=== PATIENT | male | born 2000 | race Caucasian/White ===

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

== ENCOUNTER 2021-01-05 22:16 | Emergency (ER) | payer OTHER ==
--- NOTE | 2021-01-05 22:52 | XR ---
EXAMINATION TYPE: XR chest 2V DATE OF EXAM: 01/05/2021 COMPARISON: NONE HISTORY: Short of breath TECHNIQUE: 2 views FINDINGS: Heart and mediastinum are normal. Lungs are clear. Diaphragm is normal. Bony thorax is inta ct. The pulmonary vascularity is normal. IMPRESSION: Normal chest.
[2021-01-05 22:58] LABS: Basophils # (A) 0.1 k/uL (0-0.2); Basophils % (A) 0 %; Eosinophils # (A) 0.1 k/uL (0-0.7); Eosinophils % (A) 1 %; HCT 45.4 % (39.0-53.0); HGB 15.9 gm/dL (13.0-17.5); Lymphocytes % (A) 17 %; MCH 29.9 pg (25.0-35.0); MCHC 35.1 g/dL (31.0-37.0); MCV 85.1 fL (80.0-100.0); Mean Platelet Volume 8.7; Monocytes # (A) 0.6 k/uL (0-1.0); Monocytes % (A) 5 %; Neutrophils # (A) 9.1 k/uL (1.3-7.7); Neutrophils % (A) 76 %; Platelet Count 193 k/uL (150-450); RBC 5.33 m/uL (4.30-5.90); RDW 12.1 % (11.5-15.5)
[2021-01-05 23:04] LABS: ALT 21 U/L (4-49); AST 25 U/L (17-59); African American GFR (CKD) >90 (>60 ml/min/1.73 sqM); Albumin 4.9 g/dL (3.5-5.0); Alkaline Phosphatase 84 U/L (38-126); Anion Gap 12 mmol/L; Blood Urea Nitrogen 23 mg/dL (9-20); Calcium 10.4 mg/dL (8.4-10.2); Carbon Dioxide 22 mmol/L (22-30); Chloride 103 mmol/L (98-107); Glucose 107 mg/dL (74-99); Non-African American GFR(CKD) >90 (>60 ml/min/1.73 sqM); Potassium 3.5 mmol/L (3.5-5.1); Sodium 137 mmol/L (137-145); Total Bilirubin 0.5 mg/dL (0.2-1.3); Total Protein 7.7 g/dL (6.3-8.2)
[2021-01-05 23:44] LABS: INR 1.1 (<1.2); Partial Thromboplastin Time 22.1 sec (22.0-30.0); Prothrombin Time 11.5 sec (9.0-12.0)
[2021-01-05] MEDS ORDERED: SODIUM CHLORIDE 0.9% 500 ML 500 ML IV STA (23:47)
--- NOTE | 2021-01-06 00:07 | ED ---
SOB HPI - General Chief Complaint: Shortness of Breath Stated Complaint: SOB,Hands tingling Time Seen by Provider: 01/05/21 23:25 Source: patient Limitations: no limitations - History of Present Illness Initial Comments: This patient is a 20-year-old man who presents to be evaluated for episode of dyspnea and chest tightness that occurred this afternoon while he was working out. The patient states he has previously been able workout without episodes like this however he had recently been vaping. The patient noted that during his workout he felt it was hard to catch his breath, he was having chest tightness, and he felt like it was rattling in his chest. He had run for a mile when symptoms developed. The patient notes that his symptoms have resolved and he is back at his baseline now MD Complaint: shortness of breath, cough -: hour(s) Severity scale (1-10): 0 Quality: dull Consistency: now resolved Improves With: rest Worsens With: exertion Context: occurred during exertion Associated Symptoms: denies other symptoms Treatments Prior to Arrival: none - Related Data Home Oxygen Therapy: No Home Medications Medication Instructions Recorded Confirmed No Known Home Medications 05/12/16 05/12/16 Allergies Allergy/AdvReac Type Severity Reaction Status Date / Time amoxicillin Allergy Rash/Hives Verified 01/05/21 22:32 Review of Systems ROS Statement: Those systems with pertinent positive or pertinent negative responses have been documented in the HPI. ROS Other: All systems not noted in ROS Statement are negative. Constitutional: Denies: fever, chills, weakness Eyes: Denies: vision change Respiratory: Reports: cough, wheezes. Denies: dyspnea Cardiovascular: Reports: chest pain, palpitations, dyspnea on exertion. Denies: orthopnea, edema, syncope Gastrointestinal: Denies: abdominal pain, nausea, vomiting Genitourinary: Denies: dysuria Skin: Denies: rash Neurological: Denies: headache, weakness Past Medical History Past Medical History: Asthma History of Any Multi-Drug Resistant Organisms: None Reported Past Surgical History: No Surgical Hx Reported Past Psychological History: Depression Smoking Status: Current some day smoker Past Alcohol Use History: None Reported Past Drug Use History: None Reported General Exam Limitations: no limitations General appearance: alert, in no apparent distress Head exam: Present: atraumatic, normocephalic Eye exam: Present: normal appearance Respiratory exam: Present: normal lung sounds bilaterally. Absent: respiratory distress, wheezes, rales, rhonchi, stridor Cardiovascular Exam: Present: regular rate, normal rhythm, normal heart sounds. Absent: systolic murmur, diastolic murmur, rubs, gallop GI/Abdominal exam: Present: soft. Absent: distended, tenderness, guarding, rebound, rigid, mass Extremities exam: Present: normal inspection, normal capillary refill. Absent: pedal edema, calf tenderness Back exam: Present: normal inspection. Absent: CVA tenderness (R), CVA tenderness (L) Neurological exam: Present: alert Skin exam: Present: warm, dry, intact, normal color. Absent: rash Course Vital Signs 01/05/21 22:29 Temperature 98.0 F Pulse Rate 69 Respiratory 18 Rate Blood Pressure 164/87 O2 Sat by Pulse 95 Oximetry Medical Decision Making - Lab Data Result diagrams: 01/05/21 22:41 01/05/21 22:41 Lab Results 01/05/21 01/05/21 01/05/21 Range/Units 22:41 22:41 22:41 WBC 12.0 H (4.0-11.0) k/uL RBC 5.33 (4.30-5.90) m/uL Hgb 15.9 (13.0-17.5) gm/dL Hct 45.4 (39.0-53.0) % MCV 85.1 (80.0-100.0) fL MCH 29.9 (25.0-35.0) pg MCHC 35.1 (31.0-37.0) g/dL RDW 12.1 (11.5-15.5) % Plt Count 193 (150-450) k/uL MPV 8.7 Neutrophils % 76 % Lymphocytes % 17 % Monocytes % 5 % Eosinophils % 1 % Basophils % 0 % Neutrophils # 9.1 H (1.3-7.7) k/uL Lymphocytes # 2.0 (1.0-4.8) k/uL Monocytes # 0.6 (0-1.0) k/uL Eosinophils # 0.1 (0-0.7) k/uL Basophils # 0.1 (0-0.2) k/uL PT (9.0-12.0) sec INR (<1.2) APTT (22.0-30.0) sec Sodium 137 (137-145) mmol/L Potassium 3.5 (3.5-5.1) mmol/L Chloride 103 (98-107) mmol/L Carbon Dioxide 22 (22-30) mmol/L Anion Gap 12 mmol/L BUN 23 H (9-20) mg/dL Creatinine 1.04 (0.66-1.25) mg/dL Est GFR (CKD-EPI)AfAm >90 (>60 ml/min/1.73 sqM) Est GFR (CKD-EPI)NonAf >90 (>60 ml/min/1.73 sqM) Glucose 107 H (74-99) mg/dL Calcium 10.4 H (8.4-10.2) mg/dL Total Bilirubin 0.5 (0.2-1.3) mg/dL AST 25 (17-59) U/L ALT 21 (4-49) U/L Alkaline Phosphatase 84 (38-126) U/L Troponin I (0.000-0.034) ng/mL Total Protein 7.7 (6.3-8.2) g/dL Albumin 4.9 (3.5-5.0) g/dL Coronavirus (PCR) Not Detected (Not Detectd) 01/05/21 01/05/21 Range/Units 23:11 23:11 WBC (4.0-11.0) k/uL RBC (4.30-5.90) m/uL Hgb (13.0-17.5) gm/dL Hct (39.0-53.0) % MCV (80.0-100.0) fL MCH (25.0-35.0) pg MCHC (31.0-37.0) g/dL RDW (11.5-15.5) % Plt Count (150-450) k/uL MPV Neutrophils % % Lymphocytes % % Monocytes % % Eosinophils % % Basophils % % Neutrophils # (1.3-7.7) k/uL Lymphocytes # (1.0-4.8) k/uL Monocytes # (0-1.0) k/uL Eosinophils # (0-0.7) k/uL Basophils # (0-0.2) k/uL PT 11.5 (9.0-12.0) sec INR 1.1 (<1.2) APTT 22.1 (22.0-30.0) sec Sodium (137-145) mmol/L Potassium (3.5-5.1) mmol/L Chloride (98-107) mmol/L Carbon Dioxide (22-30) mmol/L Anion Gap mmol/L BUN (9-20) mg/dL Creatinine (0.66-1.25) mg/dL Est GFR (CKD-EPI)AfAm (>60 ml/min/1.73 sqM) Est GFR (CKD-EPI)NonAf (>60 ml/min/1.73 sqM) Glucose (74-99) mg/dL Calcium (8.4-10.2) mg/dL Total Bilirubin (0.2-1.3) mg/dL AST (17-59) U/L ALT (4-49) U/L Alkaline Phosphatase (38-126) U/L Troponin I <0.012 (0.000-0.034) ng/mL Total Protein (6.3-8.2) g/dL Albumin (3.5-5.0) g/dL Coronavirus (PCR) (Not Detectd) Disposition Clinical Impression: Exertional shortness of breath Disposition: HOME SELF-CARE Condition: Good Instructions (If sedation given, give patient instructions): Dyspnea Scale and Exercise (ED) Is patient prescribed a controlled substance at d/c from ED?: No Referrals: Uriel Glynn MD [Primary Care Provider] - 1-2 days
[2021-01-06 00:20] VITALS: BP 130/77; PULSE 76; RESP 14; TEMP 97.9
== END 2021-01-06 00:15 | disposition home or self-care (01) ==
LOC: EC 22:16
DX: R06.02 Shortness of breath (principal); J45.909 Unspecified asthma, uncomplicated; F17.200 Nicotine dependence, unspecified, uncomplicated
CPT/HCPCS: 36415; 71046; 80053; 84484; 85025; 85610; 85730; 87635; 99285

== ENCOUNTER 2021-03-06 23:26 | Emergency (ER) | payer BC, OTHER ==
[2021-03-07 00:38] VITALS: TEMP 97.4
[2021-03-07] MEDS ORDERED: SODIUM CHLORIDE 0.9% 1,000 ML IV STA (00:56)
--- NOTE | 2021-03-07 01:12 | XR ---
EXAMINATION TYPE: XR chest 2V DATE OF EXAM: 03/07/2021 COMPARISON: 01/05/2021 HISTORY: Difficulty breathing TECHNIQUE: 3 views FINDINGS: Heart and mediastinum are normal. Lungs are clear. Diaphragm is normal. Bony thorax is inta ct IMPRESSION: Normal chest. No change.
[2021-03-07 01:51] LABS: Partial Thromboplastin Time 23.6 sec (22.0-30.0)
[2021-03-07 01:58] LABS: Basophils # (A) 0.1 k/uL (0-0.2); Basophils % (A) 1 %; Eosinophils # (A) 0.1 k/uL (0-0.7); Eosinophils % (A) 2 %; HCT 47.3 % (39.0-53.0); HGB 16.7 gm/dL (13.0-17.5); Lymphocytes % (A) 41 %; MCH 30.2 pg (25.0-35.0); MCHC 35.4 g/dL (31.0-37.0); MCV 85.3 fL (80.0-100.0); Mean Platelet Volume 9.1; Monocytes # (A) 0.5 k/uL (0-1.0); Monocytes % (A) 7 %; Neutrophils # (A) 3.5 k/uL (1.3-7.7); Neutrophils % (A) 48 %; Platelet Count 210 k/uL (150-450); RBC 5.55 m/uL (4.30-5.90); RDW 12.1 % (11.5-15.5); WBC 7.4 k/uL (4.0-11.0)
[2021-03-07 02:26] LABS: ALT 23 U/L (4-49); AST 27 U/L (17-59); African American GFR (CKD) >90 (>60 ml/min/1.73 sqM); Albumin 5.2 g/dL (3.5-5.0); Alkaline Phosphatase 92 U/L (38-126); Anion Gap 13 mmol/L; Blood Urea Nitrogen 18 mg/dL (9-20); Calcium 10.2 mg/dL (8.4-10.2); Carbon Dioxide 24 mmol/L (22-30); Chloride 101 mmol/L (98-107); Glucose 98 mg/dL (74-99); Non-African American GFR(CKD) >90 (>60 ml/min/1.73 sqM); Sodium 138 mmol/L (137-145); Total Bilirubin 0.6 mg/dL (0.2-1.3)
--- NOTE | 2021-03-07 02:37 | ED ---
Extremity Problem HPI - General Chief complaint: Extremity Problem,Nontraumatic Stated complaint: Rt Arm Pain/Neck Pain Time Seen by Provider: 03/07/21 00:44 Source: patient, RN notes reviewed Mode of arrival: ambulatory - History of Present Illness Initial comments: patient is a 20-year-old male that presents to the emergency department complaining of right upper extremity pain tingling up into his neck. Patient denied any injury or trauma. He notes he is been told that it is an anxiety several times by several primary care physicians. He swears that is not anxiety that he has something wrong.patient denied any current arm pain elicited tingling. He was otherwise well-appearing. Patient denied any chest pain shortness of breath headache nausea vomiting diarrhea constipation fever fatigue chills. - Related Data Home Medications Medication Instructions Recorded Confirmed No Known Home Medications 05/12/16 05/12/16 Allergies Allergy/AdvReac Type Severity Reaction Status Date / Time amoxicillin Allergy Rash/Hives Verified 03/07/21 00:33 Review of Systems ROS Statement: Those systems with pertinent positive or pertinent negative responses have been documented in the HPI. ROS Other: All systems not noted in ROS Statement are negative. Past Medical History Past Medical History: Asthma History of Any Multi-Drug Resistant Organisms: None Reported Past Surgical History: No Surgical Hx Reported Past Psychological History: No Psychological Hx Reported Smoking Status: Vaper Past Alcohol Use History: None Reported Past Drug Use History: None Reported General Exam General appearance: alert, in no apparent distress Head exam: Present: atraumatic, normocephalic, normal inspection Eye exam: Present: normal appearance, PERRL, EOMI. Absent: scleral icterus, conjunctival injection, periorbital swelling ENT exam: Present: normal exam, mucous membranes moist Neck exam: Present: normal inspection Respiratory exam: Present: normal lung sounds bilaterally. Absent: respiratory distress, wheezes, rales, rhonchi, stridor Cardiovascular Exam: Present: regular rate, normal rhythm, normal heart sounds. Absent: systolic murmur, diastolic murmur, rubs, gallop, clicks Extremities exam: Present: normal inspection, full ROM, normal capillary refill. Absent: tenderness, pedal edema, joint swelling, calf tenderness Neurological exam: Present: alert, oriented X3 Psychiatric exam: Present: normal affect, normal mood Skin exam: Present: warm, dry, intact, normal color. Absent: rash Course Vital Signs 03/07/21 00:33 Temperature 97.4 F L Pulse Rate 61 Respiratory 19 Rate Blood Pressure 154/83 O2 Sat by Pulse 98 Oximetry Medical Decision Making - Medical Decision Making 20-year-old male complaining of right upper extremity pain with radiation neck. Labs EKG, chest x-ray1 L normal saline ordered. Labs are unremarkable and within normal limits. EKG is within normal limits. Chest x-ray shows a normal chest. No change. patient was informed of results and is agreeable with discharge home with follow-up to primary care and cardiology as needed. case discussed with Dr. Banuelos - Lab Data Result diagrams: 03/07/21 01:15 03/07/21 01:15 Lab Results 03/07/21 03/07/21 03/07/21 Range/Units 01:15 01:15 01:15 WBC 7.4 (4.0-11.0) k/uL RBC 5.55 (4.30-5.90) m/uL Hgb 16.7 (13.0-17.5) gm/dL Hct 47.3 (39.0-53.0) % MCV 85.3 (80.0-100.0) fL MCH 30.2 (25.0-35.0) pg MCHC 35.4 (31.0-37.0) g/dL RDW 12.1 (11.5-15.5) % Plt Count 210 (150-450) k/uL MPV 9.1 Neutrophils % 48 % Lymphocytes % 41 % Monocytes % 7 % Eosinophils % 2 % Basophils % 1 % Neutrophils # 3.5 (1.3-7.7) k/uL Lymphocytes # 3.0 (1.0-4.8) k/uL Monocytes # 0.5 (0-1.0) k/uL Eosinophils # 0.1 (0-0.7) k/uL Basophils # 0.1 (0-0.2) k/uL PT 11.0 (9.0-12.0) sec INR 1.0 (<1.2) APTT 23.6 (22.0-30.0) sec Sodium 138 (137-145) mmol/L Potassium 4.0 (3.5-5.1) mmol/L Chloride 101 (98-107) mmol/L Carbon Dioxide 24 (22-30) mmol/L Anion Gap 13 mmol/L BUN 18 (9-20) mg/dL Creatinine 1.00 (0.66-1.25) mg/dL Est GFR (CKD-EPI)AfAm >90 (>60 ml/min/1.73 sqM) Est GFR (CKD-EPI)NonAf >90 (>60 ml/min/1.73 sqM) Glucose 98 (74-99) mg/dL Calcium 10.2 (8.4-10.2) mg/dL Total Bilirubin 0.6 (0.2-1.3) mg/dL AST 27 (17-59) U/L ALT 23 (4-49) U/L Alkaline Phosphatase 92 (38-126) U/L Troponin I (0.000-0.034) ng/mL Total Protein 8.0 (6.3-8.2) g/dL Albumin 5.2 H (3.5-5.0) g/dL 03/07/21 Range/Units 01:15 WBC (4.0-11.0) k/uL RBC (4.30-5.90) m/uL Hgb (13.0-17.5) gm/dL Hct (39.0-53.0) % MCV (80.0-100.0) fL MCH (25.0-35.0) pg MCHC (31.0-37.0) g/dL RDW (11.5-15.5) % Plt Count (150-450) k/uL MPV Neutrophils % % Lymphocytes % % Monocytes % % Eosinophils % % Basophils % % Neutrophils # (1.3-7.7) k/uL Lymphocytes # (1.0-4.8) k/uL Monocytes # (0-1.0) k/uL Eosinophils # (0-0.7) k/uL Basophils # (0-0.2) k/uL PT (9.0-12.0) sec INR (<1.2) APTT (22.0-30.0) sec Sodium (137-145) mmol/L Potassium (3.5-5.1) mmol/L Chloride (98-107) mmol/L Carbon Dioxide (22-30) mmol/L Anion Gap mmol/L BUN (9-20) mg/dL Creatinine (0.66-1.25) mg/dL Est GFR (CKD-EPI)AfAm (>60 ml/min/1.73 sqM) Est GFR (CKD-EPI)NonAf (>60 ml/min/1.73 sqM) Glucose (74-99) mg/dL Calcium (8.4-10.2) mg/dL Total Bilirubin (0.2-1.3) mg/dL AST (17-59) U/L ALT (4-49) U/L Alkaline Phosphatase (38-126) U/L Troponin I <0.012 (0.000-0.034) ng/mL Total Protein (6.3-8.2) g/dL Albumin (3.5-5.0) g/dL - EKG Data -: EKG Interpreted by [place] EKG shows normal: sinus rhythm Rate: normal EKG Comments: ventricular rate 63 bpm, GA interval 136 ms, QRS duration 100 ms, QTC 411 ms, normal sinus rhythm with sinus arrhythmia, early repolarization, normal ECG. - Radiology Data Radiology results: report reviewed, image reviewed Chest x-ray: Normal chest. No change. Disposition Clinical Impression: Right upper limb pain, Cervical radiculopathy Disposition: HOME SELF-CARE Condition: Stable Instructions (If sedation given, give patient instructions): Cervical Radiculopathy (ED) Additional Instructions: Please return to the Emergency Department if symptoms worsen or any other concerns. Follow-up with primary care in 1-2 days. Take Tylenol Motrin as needed for pain. Is patient prescribed a controlled substance at d/c from ED?: No Referrals: Rg Ricci MD [Primary Care Provider] - 1-2 days Time of Disposition: 02:43
[2021-03-07 02:56] VITALS: BP 145/86; PULSE 64; RESP 18
== END 2021-03-07 02:56 | disposition home or self-care (01) ==
LOC: EC 23:26
DX: M79.621 Pain in right upper arm (principal); M54.12 Radiculopathy, cervical region; J45.909 Unspecified asthma, uncomplicated; F17.290 Nicotine dependence, other tobacco product, uncomplicated
CPT/HCPCS: 36415; 71046; 80053; 84484; 85025; 85610; 85730; 93005; 96360; 99284

== ENCOUNTER 2021-08-13 17:31 | Emergency (ER) | payer OTHER ==
[2021-08-13 19:23] VITALS: BP 133/85; PULSE 67; RESP 18; TEMP 98.2
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
== END 2021-08-13 20:50 | disposition home or self-care (01) ==
LOC: EC 17:31
DX: S09.90XA Unspecified injury of head, initial encounter (principal); J45.909 Unspecified asthma, uncomplicated; Z88.1 Allergy status to other antibiotic agents; F17.290 Nicotine dependence, other tobacco product, uncomplicated; V89.2XXA Person injured in unspecified motor-vehicle accident, traffic, initial encounter
CPT/HCPCS: 99283